=== PATIENT | female | born 1985 | race Caucasian/White ===

== ENCOUNTER 2017-06-12 15:09 | Observation (INO) | payer OTHER ==
[~2017-06-12] VITALS: Ht 162.6 cm; Wt 63.2 kg
[~2017-06-12 15:09] MED LIST: ASPI81TA PO; CLOP75TA2 PO; MULTTAB4 PO
[2017-06-12] MEDS ORDERED: PRED5TA PO (15:25)
[2017-06-12] MEDS ORDERED: METF500T4 PO (15:25)
[2017-06-12] MEDS ORDERED: CABE0.5T PO (15:25)
[2017-06-12] MEDS ORDERED: NS 1,000 ML IV ONE ×2 (16:00→19:00)
[2017-06-12] MEDS ORDERED: MORPHINE 2 MG/ML 1ML SYRINGE IV ONE (16:15)
[2017-06-12 16:35] LABS: BASO % 0.1 % (0.0-1.0); IMMATURE GRANULOCYTE % 0.5 % (0-0); LYMPH # 0.6 10^3/uL (1.5-4.5); LYMPH % 4.3 % (24.0-44.0); MEAN CORPUSCULAR HEMOGLOBIN 30.8 pg (27.0-33.0); MEAN CORPUSCULAR HGB CONC 34.5 g/dl (32.0-36.5); MEAN CORPUSCULAR VOLUME 89.2 fl (80.0-96.0); MONO # 0.3 10^3/uL (0.0-0.8); NEUTROPHILS # 13.9 10^3/uL (1.8-7.7); NEUTROPHILS % 93.1 % (36.0-66.0); PLATELET COUNT, AUTOMATED 296 10^3/uL (150-450); WHITE BLOOD COUNT 14.9 10^3/uL (4.0-10.0)
[2017-06-12 16:38] LABS: CONTROL LINE HCG INT CTR LINE PRESENT
[2017-06-12 16:50] LABS: INR 1.01
[2017-06-12 16:52] LABS: ALBUMIN 4.2 GM/DL (3.2-5.2); ALKALINE PHOSPHATASE 44 U/L (45-117); ALT/SGPT 31 U/L (12-78); AMYLASE 28 U/L (25-115); ANION GAP 7 MEQ/L (8-16); AST/SGOT 14 U/L (15-37); BILIRUBIN,DIRECT 0.2 MG/DL (0.0-0.2); BILIRUBIN,TOTAL 0.8 MG/DL (0.2-1.0); BLOOD UREA NITROGEN 9 MG/DL (7-18); CALCIUM LEVEL 8.5 MG/DL (8.5-10.1); CARBON DIOXIDE LEVEL 24 MEQ/L (21-32); CHLORIDE LEVEL 106 MEQ/L (98-107); CREATININE FOR GFR 0.64 MG/DL (0.55-1.02); GLOMERULAR FILTRATION RATE > 60.0 (>60); GLUCOSE, FASTING 115 MG/DL (70-105); POTASSIUM SERUM 3.7 MEQ/L (3.5-5.1); SODIUM LEVEL 137 MEQ/L (136-145); TOTAL PROTEIN 7.2 GM/DL (6.4-8.2)
[2017-06-12] MEDS ORDERED: ISOVUE-370 76% 100ML VIAL (Q9967) As Ordered ONE (17:34)
--- NOTE | 2017-06-12 18:50 | REPUSA ---
HISTORY: CHEST PAIN. TECHNIQUE: CTA protocol for PE with axial CT imaging of chest, with sagittal and coronal reformatted imaging with intravenous contrast enhancement. FINDINGS: Thoracic aorta is normal with no evidence of aneurysm or dissection. Pulmonary arteries are well opacified with contrast with no evidence of pulmonary embolism. No vascul ar abnormality is seen in the mediastinum or fausto. Mediastinal windows demonstrate no mediastinal pathologically enlarged lymph nodes, mass lesions, or abnormal mediastinal fluid collection seen. Lung windows demonstrate clear lungs with no pulmonary mass lesions, infiltrates, pneumothorax, or pl eural effusions. Bone windows demonstrate no detectable evidence of bone fracture or destructive bony lesion in the ch est. No chest wall abnormality is seen. IMPRESSION: Negative CT of chest as discussed above with no evidence of pulmonary embolism.
--- NOTE | 2017-06-12 19:00 | REPUSA ---
HISTORY: PAIN S/P EGG HARVEST. TECHNIQUE: Axial CT imaging of abdomen and pelvis with intravenous contrast and with sagittal and cor onal reformatted imaging. DLP= 876.1 mGy-cm. FINDINGS: Liver is of normal size with no pathologic mass lesion seen. Biliary tree and gallbladder are normal. Spleen is normal. Pancreas and adrenal glands are normal. Both kidneys function withou t evidence of calculus or solid mass lesion. There is a tiny subcentimeter cyst noted in the left ki dney. Ureters and urinary bladder are normal. Abdominal aorta and IVC and retroperitoneal structure s are normal. There is mild fluid distention with small air-fluid levels in the small bowel, consistent with mild n onspecific small bowel ileus. This may be related to recent surgical procedure. The colon is normal with no mass, obstruction, inflammatory reaction, or diverticulitis seen. There is fluid around the liver and spleen and fluid tracking in along the right and left paracolic gutters to the dependent p tamra. This also should be clinically correlated for recent surgical procedure, with no walled off a bscess seen, but clinical correlation and follow-up is suggested as indicated. Bony structures are normal with no fracture or destructive bony lesions seen. IMPRESSION: 1. Small amount of fluid seen around the liver and spleen and bilaterally in the paracol ic gutters extending into the dependent pelvis. Also, mild nonspecific fluid distention with air-flu id levels in the small bowel. These findings may be related to recent abdominal surgery, but clinica l correlation and follow-up is suggested as indicated. No walled off abscess is seen at this time. 2. The remainder of the CT examination of the abdomen and pelvis is normal.
[2017-06-12] MEDS ORDERED: KETOROLAC 30 MG/ML VIAL (J1885) IV ONE (20:00)
--- NOTE | 2017-06-12 20:37 | HPE ---
DATE OF ADMISSION: 06/12/2017 32-year-old 0 female presents with one day of right sided shoulder pain and diffuse lower abdominal pain that became increasingly severe. She had an egg retrieval following ovarian stimulation in [place] earlier today by Dr. Dominguez. Apparently, the procedure was very successful and there were 42 eggs retrieved. The pain started to become increasingly intense and she presented to the emergency room at [facility]. MEDICAL HISTORY: 1. 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 2. Infertility. SURGICAL HISTORY: 1. Percutaneous closure of PFO in 2012. ALLERGIES: No known drug allergies. SOCIAL HISTORY: The patient is . She lives in [place]. She denies cigarettes, alcohol or drug use. FAMILY HISTORY: Noncontributory. PHYSICAL EXAMINATION: Blood pressure 108/73, pulse 82, temperature 99.0, respiratory rate 16. She appears uncomfortable and is sitting rigidly in the bed trying not to move. She also appears pale. Head and neck exam is normal. Lungs are clear. Heart is regular rate and rhythm. Abdomen is moderately tender diffusely with no rebound or guarding. It is also mildly distended. She has no CVA tenderness. Extremities are nontender. LABORATORIES: White count is 14.3, hemoglobin 13.1 g/dL. Electrolytes normal. CT scan bilateral large adnexal masses with multiple complex cysts. ASSESSMENT: 32-year-old G0 with moderate ovarian hyperstimulation syndrome. PLAN: Admit for pain control and IV hydration. Will monitor electrolytes to assess for worsening hyperstimulation. At present, the patient is stable so there is no surgical intervention necessary. Will also plan to take precautions for thrombosis with Lovenox as well as sequentials.
[2017-06-12] MEDS ORDERED: ASPI81TAEC PO (21:04)
[2017-06-12] MEDS ORDERED: OMEG100011 PO (21:04)
[2017-06-12] MEDS ORDERED: CO Q100C PO (21:04)
[2017-06-12] MEDS ORDERED: PREN1TAB11 PO (21:04)
[2017-06-12] MEDS ORDERED: ONDANSETRON 4MG/2ML VIAL (J2405) IV PRN (21:30)
[2017-06-12] MEDS ORDERED: KETOROLAC 30 MG/ML VIAL (J1885) IV PRN (21:30)
[2017-06-12] MEDS ORDERED: KETOROLAC 30 MG/ML VIAL (J1885) As Ordered ONE (21:55)
[2017-06-12] MEDS ORDERED: PERCOCET 5MG/325MG TAB As Ordered ONE (21:56)
[2017-06-12] MEDS: PERCOCET 5MG/325MG TAB PO PRN ×2 (22:03→23:42)
[2017-06-12 23:00] VITALS: BP 115/69
[2017-06-12] MEDS: KCL 20MEQ IN D5/0.45NS 1000ML 1,000 ML IV SCH (23:42)
[2017-06-12] MEDS ORDERED: PERCOCET 5MG/325MG TAB PO ONE (23:45)
[2017-06-13] MEDS: KCL 20MEQ IN D5/0.45NS 1000ML 1,000 ML IV SCH (04:35)
[2017-06-13] MEDS: PERCOCET 5MG/325MG TAB PO PRN ×2 (04:36→11:14)
[2017-06-13 06:00] VITALS: BP 99/53
[2017-06-13 07:21] LABS: MEAN CORPUSCULAR HEMOGLOBIN 30.4 pg (27.0-33.0); MEAN CORPUSCULAR HGB CONC 34.4 g/dl (32.0-36.5); MEAN CORPUSCULAR VOLUME 88.5 fl (80.0-96.0); RED CELL DISTRIBUTION WIDTH 12.1 % (11.5-14.5); WHITE BLOOD COUNT 10.7 10^3/uL (4.0-10.0)
[2017-06-13] MEDS ORDERED: OXYC1TAB23 PO (07:38)
[2017-06-13 07:39] LABS: ALBUMIN 2.9 GM/DL (3.2-5.2); ALBUMIN/GLOBULIN RATIO 1.04 (1.00-1.93); ALKALINE PHOSPHATASE 34 U/L (45-117); ALT/SGPT 21 U/L (12-78); ANION GAP 9 MEQ/L (8-16); AST/SGOT 10 U/L (15-37); BILIRUBIN,TOTAL 0.6 MG/DL (0.2-1.0); BLOOD UREA NITROGEN 8 MG/DL (7-18); CALCIUM LEVEL 8.1 MG/DL (8.5-10.1); CARBON DIOXIDE LEVEL 22 MEQ/L (21-32); CHLORIDE LEVEL 107 MEQ/L (98-107); CREATININE FOR GFR 0.61 MG/DL (0.55-1.02); GLOMERULAR FILTRATION RATE > 60.0 (>60); GLUCOSE, FASTING 130 MG/DL (70-105); POTASSIUM SERUM 3.3 MEQ/L (3.5-5.1); SODIUM LEVEL 138 MEQ/L (136-145); TOTAL PROTEIN 5.7 GM/DL (6.4-8.2)
[2017-06-13] MEDS ORDERED: LOVE1INJ2 SC (07:40)
[2017-06-13 08:00] VITALS: BP 105/58
[2017-06-13] MEDS ORDERED: ENOXAPARIN 30 MG/0.3 ML SYR (J1650) SC SCH (09:00)
== END 2017-06-13 11:20 | disposition home or self-care (01) ==
LOC: M ED 15:09 → M SDC 19:45 → M ED INP 21:56 → M PED 23:09
PROVIDERS: ADMIT Specialist; ATTEND Specialist
DX: N98.1 Hyperstimulation of ovaries (principal); N97.9 Female infertility, unspecified
CPT/HCPCS: 36415; 71275; 74177; 80048; 80053; 80076; 82150; 83690; 84703; 85025; 85027; 85610; 85730; 86850; 86900; 86901; 93041; 96372; 96374; 96375; 96376; 99285; J1650; J1885; Q9967

== ENCOUNTER → 2017-09-10 | Outpatient (CLI) | payer OTHER | LOC: M WUC 16:03 | DX: S60.211A Contusion of right wrist, initial encounter (principal); X58.XXXA Exposure to other specified factors, initial encounter; Y92.89 Other specified places as the place of occurrence of the external cause | CPT/HCPCS: 73080 ==

== ENCOUNTER → 2017-09-20 | Outpatient (REF) | payer OTHER | LOC: M LAB REF 12:25 | DX: J02.9 Acute pharyngitis, unspecified (principal) ==

== ENCOUNTER → 2017-10-18 | Outpatient (CLI) | payer OTHER ==
[2017-10-18 09:05] LABS: PROGESTERONE 27.9 NG/ML
[2017-10-18 09:06] LABS: ESTRADIOL 234.4 PG/ML
== END ==
LOC: M LAB 07:47
DX: N97.9 Female infertility, unspecified (principal)

== ENCOUNTER 2017-11-20 16:11 | Emergency (ER) | payer OTHER ==
[2017-11-20] MEDS: NS 1,000 ML IV (17:45)
[2017-11-20 17:58] LABS: BASO % 0.3 % (0.0-1.0); EOS # 0.1 10^3/uL (0.0-0.50); EOS % 0.8 % (0.0-3.0); HEMATOCRIT 31.5 % (36.0-47.0); IMMATURE GRANULOCYTE % 0.3 % (0-3.0); LYMPH # 1.8 10^3/uL (1.5-4.5); LYMPH % 17.9 % (24.0-44.0); MEAN CORPUSCULAR HEMOGLOBIN 30.4 pg (27.0-33.0); MEAN CORPUSCULAR HGB CONC 34.9 g/dl (32.0-36.5); MONO # 0.7 10^3/uL (0.0-0.8); MONO % 7.3 % (0.0-5.0); NEUTROPHILS # 7.3 10^3/uL (1.8-7.7); NEUTROPHILS % 73.4 % (36.0-66.0); PLATELET COUNT, AUTOMATED 295 10^3/uL (150-450); RED BLOOD COUNT 3.62 10^6/uL (4.00-5.40); RED CELL DISTRIBUTION WIDTH 11.9 % (11.5-14.5)
[2017-11-20 18:02] LABS: APPEARANCE, URINE CLEAR (CLEAR); BACTERIA, URINE AUTO NEGATIVE (NEGATIVE); BILIRUBIN, URINE AUTO NEGATIVE (NEGATIVE); BLOOD, URINE BLOOD 3+ (NEGATIVE); COLOR, URINE STRAW (YELLOW); GLUCOSE, URINE (UA) AUTO NEGATIVE (NEGATIVE); KETONE, URINE AUTO NEGATIVE (NEGATIVE); LEUKOCYTE ESTERASE, URINE AUTO NEGATIVE (NEGATIVE); NITRITE, URINE AUTO NEGATIVE (NEGATIVE); PROTEIN, URINE AUTO NEGATIVE (NEGATIVE); RBC, URINE AUTO 2 /HPF (0-3); SPECIFIC GRAVITY URINE AUTO 1.003 (1.002-1.035); SQUAMOUS EPITHELIAL CELL UR AU 0 /HPF (0-6); UROBILINOGEN, URINE AUTO 0.2 mg/dL (0.0-2.0); WBC, URINE AUTO 0 /HPF (0-3)
[2017-11-20 18:39] LABS: ANION GAP 8 MEQ/L (8-16); BLOOD UREA NITROGEN 10 MG/DL (7-18); CALCIUM LEVEL 8.4 MG/DL (8.5-10.1); CARBON DIOXIDE LEVEL 23 MEQ/L (21-32); CHLORIDE LEVEL 108 MEQ/L (98-107); CREATININE FOR GFR 0.41 MG/DL (0.55-1.30); GLOMERULAR FILTRATION RATE > 60.0 (>60); GLUCOSE, FASTING 80 MG/DL (70-100); HCG, SERUM QUANTITATIVE 68008 MIU/ML; POTASSIUM SERUM 3.7 MEQ/L (3.5-5.1); SODIUM LEVEL 139 MEQ/L (136-145)
== END 2017-11-20 19:38 | disposition home or self-care (01) ==
LOC: M ED 16:11
DX: O20.8 Other hemorrhage in early pregnancy (principal); O34.82 Maternal care for other abnormalities of pelvic organs, second trimester; O26.892 Other specified pregnancy related conditions, second trimester; Z95.9 Presence of cardiac and vascular implant and graft, unspecified; Z86.73 Personal history of transient ischemic attack (TIA), and cerebral infarction without residual deficits; Z3A.08 8 weeks gestation of pregnancy; Z79.82 Long term (current) use of aspirin; Z79.899 Other long term (current) drug therapy; Z79.84 Long term (current) use of oral hypoglycemic drugs
CPT/HCPCS: 76801

== ENCOUNTER → 2017-12-17 | Outpatient (REF) | payer OTHER ==
[2017-12-17 13:09] LABS: HEMATOCRIT 33.5 % (36.0-47.0); HEMOGLOBIN 11.7 g/dl (12.0-15.5); MEAN CORPUSCULAR HEMOGLOBIN 30.2 pg (27.0-33.0); MEAN CORPUSCULAR HGB CONC 34.9 g/dl (32.0-36.5); MEAN CORPUSCULAR VOLUME 86.6 fl (80.0-96.0); PLATELET COUNT, AUTOMATED 317 10^3/uL (150-450); RED BLOOD COUNT 3.87 10^6/uL (4.00-5.40); RED CELL DISTRIBUTION WIDTH 12.1 % (11.5-14.5); WHITE BLOOD COUNT 9.2 10^3/uL (4.0-10.0)
[2017-12-17 14:02] LABS: HCG, SERUM QUANTITATIVE 28537 MIU/ML
[2017-12-18 11:49] LABS: RUBELLA IgG QUALITATIVE IMMUNE (IMMUNE)
[2017-12-18 11:58] LABS: HBsAg Prenatal NEGATIVE (NEGATIVE)
[2017-12-18 12:16] LABS: HEPATITIS C VIRUS ABY INDEX < 0.0 INDEX (<0.8)
[2017-12-18 12:20] LABS: HIV 1&2 SCREEN CENTAUR NEGATIVE (NEGATIVE)
== END ==
LOC: M LAB REF 12:51
DX: Z34.81 Encounter for supervision of other normal pregnancy, first trimester (principal)

== ENCOUNTER → 2018-04-08 | Outpatient (CLI) | payer OTHER ==
[2018-04-08 11:31] LABS: HEMOGLOBIN 10.6 g/dl (12.0-15.5); MEAN CORPUSCULAR HEMOGLOBIN 30.5 pg (27.0-33.0); MEAN CORPUSCULAR HGB CONC 34.2 g/dl (32.0-36.5); MEAN CORPUSCULAR VOLUME 89.1 fl (80.0-96.0); PLATELET COUNT, AUTOMATED 282 10^3/uL (150-450); RED BLOOD COUNT 3.48 10^6/uL (4.00-5.40); RED CELL DISTRIBUTION WIDTH 12.4 % (11.5-14.5); WHITE BLOOD COUNT 10.3 10^3/uL (4.0-10.0)
[2018-04-08 11:42] LABS: GLUCOSE CHALLENGE TEST 1 HOUR 133 MG/DL (LESS THAN 140)
== END ==
LOC: M LAB 10:00
DX: Z34.82 Encounter for supervision of other normal pregnancy, second trimester (principal); Z36.89 Encounter for other specified antenatal screening
CPT/HCPCS: 82950

== ENCOUNTER → 2018-05-13 | Outpatient (REF) | payer OTHER ==
[2018-05-13 15:32] LABS: CHLAMYDIA DNA AMPLIFICATION NEGATIVE (NEGATIVE); GC DNA AMPLIFICATION NEGATIVE (NEGATIVE)
== END ==
LOC: M LAB REF 13:12
DX: Z34.03 Encounter for supervision of normal first pregnancy, third trimester (principal)

== ENCOUNTER → 2018-06-05 | Outpatient (REF) | payer OTHER | LOC: M LAB REF 13:57 | DX: Z34.03 Encounter for supervision of normal first pregnancy, third trimester (principal); Z36.85 Encounter for antenatal screening for Streptococcus B ==

== ENCOUNTER → 2020-06-30 | Outpatient (REF) | payer OTHER ==
[~2020-06-30] MED LIST changes: -ASPI81TA PO; +ASPI81TAEC PO; +CABE0.5T PO; +CHIL1CHW5 PO; +CO Q100C PO; +COLA100C5 PO; +ENDO100S VA; +IBUP-1114 PO; +LOVE1INJ2 SC; +MAPA500T2 PO; +METF-838 PO; +OMEG100011 PO; +OXYC1TAB23 PO; +PRED5TA PO; +PREN1TAB11 PO; +PRENTAB16 PO
[2020-06-30 14:10] LABS: HEMATOCRIT 36.6 % (36.0-47.0); HEMOGLOBIN 12.2 g/dl (12.0-15.5); MEAN CORPUSCULAR HEMOGLOBIN 29.9 pg (27.0-33.0); MEAN CORPUSCULAR HGB CONC 33.3 g/dl (32.0-36.5); MEAN CORPUSCULAR VOLUME 89.7 fl (80.0-96.0); PLATELET COUNT, AUTOMATED 271 10^3/uL (150-450); RED BLOOD COUNT 4.08 10^6/uL (4.00-5.40); WHITE BLOOD COUNT 7.5 10^3/uL (4.0-10.0)
[2020-06-30 14:53] LABS: HEPATITIS B SURFACE ANTIGEN NEGATIVE (NEGATIVE)
== END ==
LOC: M LAB REF 12:30
PROVIDERS: ATTEND Obstetrics & Gynecology
DX: Z34.81 Encounter for supervision of other normal pregnancy, first trimester (principal)

== ENCOUNTER → 2020-08-04 | Outpatient (REF) | payer OTHER ==
[2020-08-04 14:59] LABS: HEPATITIS C VIRUS ABY INDEX < 0.0 INDEX (<0.8); HIV 1&2 SCREEN CENTAUR NEGATIVE (NEGATIVE)
== END ==
LOC: M LAB REF 11:05
PROVIDERS: ATTEND Obstetrics & Gynecology
DX: Z34.82 Encounter for supervision of other normal pregnancy, second trimester (principal); Z3A.00 Weeks of gestation of pregnancy not specified

== ENCOUNTER → 2020-08-24 | Outpatient (CLI) | payer OTHER ==
--- NOTE | 2020-08-24 10:50 | REP ---
INDICATION: ANATOMY COMPARISON: None. TECHNIQUE: Transabdominal obstetrical ultrasound with color Doppler evaluation. FINDINGS: Examination demonstrates a single live intrauterine in breech presentation. motion is identified by technologist. Placenta is noted posterior and grade 1 without evidence for placenta previa or abruption. Amniotic fluid volume is normal. Cervix measures 3.4 cm in length and appears closed.. Gestational age by LMP nineteen weeks 5 days with CL 01/13/2021. Gestational age by current measurements 19 weeks 3 days with CL 01/15/2021. FHR equals 152 beats per minute. BPD: 4.3 cm 18 weeks 6 days HC: 16.1 cm 19 weeks 0 days AC: 14.6 cm 19 weeks 6 days FL: 3.1 cm 19 weeks 3 days HL: 3.0 cm 19 weeks 5 days HC/AC: 1.11 Estimated weight 301 grams (39thpercentile). Anatomical assessment demonstrates normal structures including cranium, choroid plexus, cavum, cerebellum/posterior fossa, facial features, lungs, four-chamber heart/ventricular outflow tracts, diaphragm, stomach, cord insertion/three-vessel cord, kidneys/bladder, spine, and extremities. IMPRESSION: Single live intrauterine in breech presentation demonstrating appropriate estimated weight and growth. Anatomical assessment is complete and normal. <Electronically signed by Rojelio Dinh > 08/24/20 0825
== END ==
LOC: M WHC 08:29
PROVIDERS: ATTEND Advanced Practice Midwife
DX: Z36.9 Encounter for antenatal screening, unspecified (principal); Z3A.19 19 weeks gestation of pregnancy

== ENCOUNTER → 2020-10-21 | Outpatient (CLI) | payer OTHER ==
[2020-10-21 15:44] LABS: HEMATOCRIT 33.2 % (36.0-47.0); MEAN CORPUSCULAR HEMOGLOBIN 30.3 pg (27.0-33.0); MEAN CORPUSCULAR HGB CONC 33.1 g/dl (32.0-36.5); MEAN CORPUSCULAR VOLUME 91.5 fl (80.0-96.0); PLATELET COUNT, AUTOMATED 246 10^3/uL (150-450); RED BLOOD COUNT 3.63 10^6/uL (4.00-5.40); WHITE BLOOD COUNT 10.5 10^3/uL (4.0-10.0)
== END ==
LOC: M LAB 13:44
PROVIDERS: ATTEND Obstetrics & Gynecology
DX: Z34.82 Encounter for supervision of other normal pregnancy, second trimester (principal); Z3A.00 Weeks of gestation of pregnancy not specified

== ENCOUNTER → 2020-11-01 | Outpatient (CLI) | payer OTHER ==
[~2020-11-01] MED LIST changes: +ASPI-569 PO; -ASPI81TAEC PO
== END ==
LOC: M LAB 07:52
PROVIDERS: ATTEND Obstetrics & Gynecology
DX: O99.810 Abnormal glucose complicating pregnancy (principal); Z3A.00 Weeks of gestation of pregnancy not specified

== ENCOUNTER → 2020-12-09 | Outpatient (REF) | payer OTHER | LOC: M LAB REF 14:52 | PROVIDERS: ATTEND Advanced Practice Midwife | DX: Z36.89 Encounter for other specified antenatal screening (principal) ==

== ENCOUNTER → 2020-12-16 | Outpatient (CLI) | payer OTHER ==
--- NOTE | 2020-12-16 14:56 | REP ---
INDICATION: POSITION,EFW,HALEY COMPARISON: 08/24/2020 TECHNIQUE: Transabdominal obstetrical ultrasound with color Doppler evaluation. FINDINGS: Examination demonstrates a single live intrauterine in cephalic presentation. motion is identified by technologist. Placenta is noted posterior and grade 2 without evidence for placenta previa or abruption. Amniotic fluid volume is normal. Cervix appears closed.. Gestational age by LMP and 1st U/S 36 weeks 0 days with CL 01/13/2021. Gestational age by current measurements 35 weeks 5 days with CL 01/15/2021. FHR equals 169 beats per minute. Estimated weight 2815 grams (50thpercentile). HALEY: 9.2 cm (7.7-24.9) Umbilical artery SD ratio: 2.28 (1.64-3.51) Anatomical assessment demonstrates normal structures including cranium, cerebral ventricles, choroid plexus, posterior fossa/cerebellum, four-chamber heart, diaphragm, stomach, abdominal wall and kidneys/bladder. Three-vessel cord noted.. IMPRESSION: Single live intrauterine in cephalic presentation demonstrating appropriate estimated weight and growth. Amniotic fluid volume normal. <Electronically signed by Rojelio Dinh > 12/16/20 [id number]
== END ==
LOC: M WHC 11:49
PROVIDERS: ATTEND Advanced Practice Midwife
DX: O32.0XX1 Maternal care for unstable lie, fetus 1 (principal); Z3A.36 36 weeks gestation of pregnancy

== ENCOUNTER 2021-06-12 19:12 | Emergency (ER) | payer OTHER ==
[~2021-06-12] VITALS: Ht 162.6 cm; Wt 59.0 kg
--- OUTSIDE RECORDS SUMMARY | 2021-06-12 19:18 | CCD ---
Author Author [facility] Organization [facility] Address Unknown Phone Unavailable Care Team Providers Care Tacking Stitch Remover Name Role Phone NO, PCP Unavailable Unavailable Mona ACOSTA MD Unavailable Unavailable Mona ACOSTA MD Unavailable Unavailable Mona ACOSTA MD Unavailable Unavailable Mona ACOSTA MD Unavailable Unavailable Mona ACOSTA MD Unavailable Unavailable Mona ACOSTA MD Unavailable Unavailable Mona ACOSTA MD Unavailable Unavailable Mona ACOSTA MD Unavailable Unavailable Mona ACOSTA MD Unavailable Unavailable Mona ACOSTA MD Unavailable Unavailable Mona ACOSTA MD Unavailable Unavailable Mona ACOSTA MD Unavailable Unavailable KARLAMona Mann MD Unavailable Unavailable KARLAMona Mann MD Unavailable Unavailable Mona ACOSTA MD Unavailable Unavailable KARLAMona Mann MD Unavailable Unavailable Mona ACOSTA MD Unavailable Unavailable KARLAMona Mann MD Unavailable Unavailable Mona ACOSTA MD Unavailable Unavailable KARLAMona Mann MD Unavailable Unavailable KARLAMona Mann MD Unavailable Unavailable KARLA, Mona DEAN MD Unavailable Unavailable KARLA, Mona DEAN MD Unavailable Unavailable KARLA, Mona DEAN MD Unavailable Unavailable KARLA, Mona DEAN MD Unavailable Unavailable KARLA, Mona DEAN MD Unavailable Unavailable KARLA, Mona DEAN MD Unavailable Unavailable KARLA, Mona DEAN MD Unavailable Unavailable KARLA, Mona DEAN MD Unavailable Unavailable KARLA, Mona DEAN MD Unavailable Unavailable Garcia, M Christopher PA-C Unavailable Unavailable Garcia, M Christopher PA-C Unavailable Unavailable Garcia, M Christopher PA-C Unavailable Unavailable Garcia, M Christopher PA-C Unavailable Unavailable Garcia, M Christopher PA-C Unavailable Unavailable Garcia, M Christopher PA-C Unavailable Unavailable Garcia, M Christopher PA-C Unavailable Unavailable Garcia, M Christopher PA-C Unavailable Unavailable Garcia, M Christopher PA-C Unavailable Unavailable Garcia, M Christopher PA-C Unavailable Unavailable Garcia, M Christopher PA-C Unavailable Unavailable Garcia, M Christopher PA-C Unavailable Unavailable Garcia, M Christopher PA-C Unavailable Unavailable Garcia, M Christopher PA-C Unavailable Unavailable Garcia, M Christopher PA-C Unavailable Unavailable Garcia, M Christopher PA-C Unavailable Unavailable Garcia, M Christopher PA-C Unavailable Unavailable Garcia, M Christopher PA-C Unavailable Unavailable Garcia, M Christopher PA-C Unavailable Unavailable Garcia, M Christopher PA-C Unavailable Unavailable Garcia, M Christopher PA-C Unavailable Unavailable Garcia, M Christopher PA-C Unavailable Unavailable Garcia, M Christopher PA-C Unavailable Unavailable Garcia, M Christopher PA-C Unavailable Unavailable Garcia, M Christopher PA-C Unavailable Unavailable Garcia, M Christopher PA-C Unavailable Unavailable Re-disclosure Warning The records that you are about to access may contain information from federally-assisted alcohol or drug abuse programs. If such information is present, then the following federally mandated warning applies: This information has been disclosed to you from records protected by federal confidentiality rules (42 CFR part 2). The federal rules prohibit you from making any further disclosure of this information unless further disclosure is expressly permitted by the written consent of the person to whom it pertains or as otherwise permitted by 42 CFR part 2. A general authorization for the release of medical or other information is NOT sufficient for this purpose. The Federal rules restrict any use of the information to criminally investigate or prosecute any alcohol or drug abuse patient.The records that you are about to access may contain highly sensitive health information, the redisclosure of which is protected by Article 27-F of the [facility] Public Health law. If you continue you may have access to information: Regarding HIV / AIDS; Provided by facilities licensed or operated by the [facility] Office of Mental Health; or Provided by the [facility] Office for People With Developmental Disabilities. If such information is present, then the following [facility] mandated warning applies: This information has been disclosed to you from confidential records which are protected by state law. State law prohibits you from making any further disclosure of this information without the specific written consent of the person to whom it pertains, or as otherwise permitted by law. Any unauthorized further disclosure in violation of state law may result in a fine or fci sentence or both. A general authorization for the release of medical or other information is NOT sufficient authorization for further disc losure. Allergies and Adverse Reactions Type Description Substance Reaction Status Data Source(s ) No Known Allergies No Known Allergies [facility] Family History Family Member Name Family Member Gender Family Member Status Date o f Status Description Data Source(s) Unknown Male Problem [facility] ([facility] Unknown Male Problem [facility] ([facility] Unknown Unknown Problem [facility] Encounters Encounter Providers Location Date Indications Data Source(s ) Outpatient Attender: Kayode Garcia PA-C 06/03/2021 12:51:31 PM EDT - 06/03/2021 02:51:55 PM EDT [facility] In[facility] Attender: DIANNE ACOSTA MDConsultant: PCP NO 01/05/2021 06:05:00 PM EDT - 01/07/2021 11:15:00 AM EDT [facility] Patient discharged. Medications Medication Brand Name Start Date Product Form Dose Route Admi nistrative Instructions Pharmacy Instructions Status Indications Reaction Description Data Source(s) 50 mg 03/25/2021 12:00:00 AM EDT tablet 30 TAKE 1/2 TABLET BY MOUTH ONCE DAILY FOR 14 DAYS THEN INCREASE TO 1 TABLET ONCE DAILY IN THE MORNING TAKE 1/2 TABLET BY MOUTH ONCE DAILY FOR 14 DAYS THEN INCREASE TO 1 TABLET ONCE DAILY IN THE MORNING SOLD: 03/28/2021 Sen alvarado Insurance Providers Payer name Policy type / Coverage type Policy ID Covered republican ID Covered republican's relationship to mcmahon Policy Mcmahon Plan Information [employer]ET[employer] [place] [id number] SP [id number] AETNA U [id number] Self [id number] UN [employer] CHOICE PLUS [id number] SP [id number] [facility] Commercial Insurance Co. [id number] Self [id number] [employer] Do[employer]. [employer] Co. [id number] Self [id number] R [facility] [id number] AETNA [id number] SP [id number] UMR O [id number] S [id number] [employer] HE[employer]CARE [place] O [id number] S [id number] AETNA [id number] SP [id number] UMR -O/P [id number] 18 [id number] [employer] [place] CHOICE PLUS [id number] SP [id number] UMR -O [id number] 18 [id number] [employer]etna Ppo/Pos/Nap/MC Commercial [id number] Self [id number] [employer]na Ppo/Pos/Nap/MC Commercial [id number] Self [id number] [employer] Life [employer] Commercial [id number] Self [employer] HEALTHCARE [place] O [id number] S [id number] UMR -O [id number] 01 [id number] [employer]etna [facility] Care Commercial [id number] Self Aetna Ppo/Pos/Nap/MC Commercial [id number] Self BCBS OF [place] [id number] SP [id number] EXC PLANS 1 [id number] SELF PAY 2 UNAVAILABLE 1 UNAVAILA BLE Problems, Conditions, and Diagnoses Code Display Name Description Problem Type Effective Dates Data Source(s) Z8673 Personal history of transien t ischemic attack (TIA), and cerebral infarction without residual deficits Personal history of transient ischemic attack (TIA), and cerebral infarction without residual deficits Diagnosis 01/05/2021 06:05:00 PM EDT [facility] [id number] 38 weeks gestation of 38 weeks gestation of Diagnosis 01/05/2021 06:05:00 PM EDT [facility] Z370 Single live Single live Diagnosis 01/05/2021 06:05:00 PM EDT [facility] O80 Encounter for full-term uncomplicated de livery Encounter for full-term uncomplicated delivery Diagnosis 01/05/2021 06:05:00 PM EDT [facility] [id number] Encounter for supervision of other anshu l , third trimester Encounter for supervision of other normal , third trimester Diagnosis 01/05/2021 06:05:00 PM EDT [facility] Surgeries/Procedures Procedure Description Date Indications Data Source(s) Monitoring of Products of Conception, Ca rdiac Electrical Activity, External Approach Monitoring of Products of Conception, Ca rdiac Electrical Activity, External Approach 01/05/2021 12:00:00 AM EDT [facility] Delivery of Products of Conception, External Approach Delivery of Products of Conception, External Approach 01/05/2021 12:00:00 AM EDT [facility] Results ID Date Data Source [id number] 06/03/2021 01:00:00 PM EDT [facility] Name Value Range Interpretation Code Description Data Janet rce(s) Supporting Document(s) SARS-CoV-2 RNA Resp Ql SULEMA+probe NOT DETECTED [facility] This lab was ordered by SHAYLEE martin and reported by SHAYLEE Varghese. ID Date Data Source [id number] 01/06/2021 07:50:00 AM EDT [facility] Name Value Range Interpretation Code Description Data Janet rce(s) Supporting Document(s) CBC W/MANUAL DIFF [facility] COMPLETE BLOOD COUNT Leukocytes [#/volume] in Blood by Automated count 16.0 10^3/uL 4.2 - 11.0 H [facility] Erythrocytes [#/volume] in Blood by Automated count 3.69 10^6/uL 4. 20 - 5.40 L [facility] Hemoglobin [Mass/volume] in Blood 11.7 g/dL 12.0 - 16.0 L [facility] Hematocrit [Volume Fraction] of Blood by Automated count 33.4 % 3 7.0 - 47.0 L [facility] Erythrocyte mean corpuscular volume [Entitic volume] by Auto mated count 90.5 fL 81.0 - 101 [facility] Erythrocyte mean corpuscular hemoglobin [Entitic mass] by Automated count 31.7 pg 27.0 - 34.0 [facility] Erythrocyte mean corpuscular hemoglobin concentration [Mass/volume] by Automated count 35.0 g/dL 31.0 - 36.0 [facility] Erythrocyte distribution width [Ratio] by Automated count 12.8 % 11.5 - 14.5 [facility] Platelets [#/volume] in Blood by Automated count 225 10^3/uL 150 - 45 0 [facility] Platelet mean volume [Entitic volume] in Blood by Automated count 9.4 fL 7.4 - 10.4 [facility] Neutrophils/100 leukocytes in Blood by Automated count 82.8 % 37. 0 - 80.0 H [facility] Lymphocytes/100 leukocytes in Blood by Manual count 8.4 % 25.0 - 40.0 L [facility] Monocytes/100 leukocytes in Blood by Automated count 7.2 % 3.0 - 8.0 [facility] Eosinophils/100 leukocytes in Blood by Automated count 0.4 % 0.0 - 7.0 [facility] Basophils/100 leukocytes in Blood by Automated count 0.2 % 0.0 - 2.5 [facility] %IG 1.0 % 0.0 - 0.0 [facility] %NRBC 0.0 % 0.0 - 0.0 [facility] al Neutrophils [#/volume] in Blood by Automated count 13.29 10^3/uL 2. 00 - 6.90 H [facility] Lymphocytes [#/volume] in Blood by Automated count 1.35 10^3/uL 0.60 - 3.40 [facility] Monocytes [#/volume] in Blood by Automated count 1.15 10^3/uL 0.00 - 0.90 H [facility] Eosinophils [#/volume] in Blood by Automated count 0.06 10^3/uL 0.00 - 0.70 [facility] Basophils [#/volume] in Blood by Automated count 0.03 10^3/uL 0.00 - 0.20 [facility] #IG 0.16 10^3/uL 0.00 - 0.10 H [facility]ital #NRBC 0.00 10^3/uL 0.00 - 0.00 [facility] ospital MANUAL DIFF SEE BELOW [facility] Segmented neutrophils/100 leukocytes in Blood by Manual count 93 % 37 - 80 H [facility] %LYMPH 4 % 25 - 40 L [facility] al %MONO 3 % 3 - 8 [facility] al RBC MORPH NOT INDICATED [facility] Ho spital ID Date Data Source [id number] 01/05/2021 07:22:00 PM EDT [facility] Name Value Range Interpretation Code Description Data Janet rce(s) Supporting Document(s) BASIC METABOLIC PANEL [facility] BASIC METABOLIC PANEL Sodium [Moles/volume] in Serum or Plasma 136 mEq/L 134 - 153 [facility] Potassium [Moles/volume] in Serum or Plasma 3.5 mEq/L 3.6 - 5.0 L [facility] Chloride [Moles/volume] in Serum or Plasma 103 mEq/L 98 - 107 [facility] Carbon dioxide, total [Moles/volume] in Serum or Plasma 18 MEQ/L 22 - 30 L [facility] Glucose [Mass/volume] in Serum or Plasma 84 MG/DL 70 - 99 [facility] BUN 6 MG/DL 7 - 21 L [facility] al Creatinine [Mass/volume] in Serum or Plasma <0.4 MG/DL 0.7 - 1.5 L [facility] BUN/CREAT 20 8 - 27 [facility] Calcium [Mass/volume] in Serum or Plasma 8.8 MG/DL 8.4 - 10.2 [facility] Anion gap 3 in Serum or Plasma 15.0 mmol/L 8.0 - 16.0 [facility] AGE 35 yrs [facility] AFR AMER GFR >60 mL/min [facility] Ho spital NON-AA GFR >60 mL/min [facility] ital Male GFR Inter prentation 20-49 yrs >60 mL/min Normal 50-59 yrs >56 mL/min Normal 60-69 yrs >49 mL/min Normal 70-79yrs >42 mL/min Normal 80 and above >35 mL/min Normal Female GFR Interpretation 20-39 yrs >60 mL/min Normal 40-49 yrs >58 mL/min Normal 50-59 yrs >51 mL/min Normal 60-69 yrs >45 mL/min Normal 70-79 yrs >39 mL/min Normal 80 and above >32 mL/min Normal ID Date Data Source [id number] 01/05/2021 07:19:00 PM EDT [facility] Name Value Range Interpretation Code Description Data Janet rce(s) Supporting Document(s) BNP 20 PG/ML 0 - [address] [facility] ID Date Data Source [id number] 01/05/2021 07:16:00 PM EDT [facility] Name Value Range Interpretation Code Description Data Janet rce(s) Supporting Document(s) Prothrombin time (PT) 13.1 SECONDS 11.0 - 15.5 [facility] INR in Platelet poor plasma by Coagulation assay 0.94 0.93 - 1. 23 [facility] aPTT in Blood by Coagulation assay 26.5 SECONDS 24.8 - 36.7 [facility] \BLDo\INR INTERPRETATION\BLDx\ Therapeutic range for Coumadin and related oral anticoagulants. - International Normalized Ratio (INR): 2.0 - 3.0 for Venous Thrombosis, Pulmonary Embolus, Tissue heart valves, Acute ND Atrial Fibrillation, Valvular heart disease and recurrent Systemic Embolism. - International Normalized Ratio (INR): 2.5 - 3.5 for Mechanical Prosthetic valve. ID Date Data Source [id number] 01/05/2021 07:11:00 PM EDT [facility] Name Value Range Interpretation Code Description Data Janet rce(s) Supporting Document(s) CBC W/AUTOMATED DIFF [facility] COMPLETE BLOOD COUNT Leukocytes [#/volume] in Blood by Automated count 15.6 10^3/uL 4.2 - 11.0 H [facility] Erythrocytes [#/volume] in Blood by Automated count 4.16 10^6/uL 4. 20 - 5.40 L [facility] Hemoglobin [Mass/volume] in Blood 13.1 g/dL 12.0 - 16.0 [facility] Hematocrit [Volume Fraction] of Blood by Automated count 37.0 % 3 7.0 - 47.0 [facility] Erythrocyte mean corpuscular volume [Entitic volume] by Auto mated count 88.9 fL 81.0 - 101 [facility] Erythrocyte mean corpuscular hemoglobin [Entitic mass] by Automated count 31.5 pg 27.0 - 34.0 [facility] Erythrocyte mean corpuscular hemoglobin concentration [Mass/volume] by Automated count 35.4 g/dL 31.0 - 36.0 [facility] Erythrocyte distribution width [Ratio] by Automated count 12.7 % 11.5 - 14.5 [facility] Platelets [#/volume] in Blood by Automated count 228 10^3/uL 150 - 45 0 [facility] Platelet mean volume [Entitic volume] in Blood by Automated count 9.2 fL 7.4 - 10.4 [facility] Neutrophils/100 leukocytes in Blood by Automated count 80.1 % 37. 0 - 80.0 H [facility] Lymphocytes/100 leukocytes in Blood by Manual count 10.8 % 25.0 - 40.0 L [facility] Monocytes/100 leukocytes in Blood by Automated count 7.2 % 3.0 - 8.0 [facility] Eosinophils/100 leukocytes in Blood by Automated count 0.4 % 0.0 - 7.0 [facility] 0.3 %IG 1.2 % 0.0 - 0.0 [facility] %NRBC 0.0 % 0.0 - 0.0 [facility] al Neutrophils [#/volume] in Blood by Automated count 12.49 10^3/uL 2. 00 - 6.90 H [facility] Lymphocytes [#/volume] in Blood by Automated count 1.69 10^3/uL 0.60 - 3.40 [facility] Monocytes [#/volume] in Blood by Automated count 1.13 10^3/uL 0.00 - 0.90 H [facility] Eosinophils [#/volume] in Blood by Automated count 0.06 10^3/uL 0.00 - 0.70 [facility] Basophils [#/volume] in Blood by Automated count 0.04 10^3/uL 0.00 - 0.20 [facility] #IG 0.18 10^3/uL 0.00 - 0.10 H [facility] H ospital #NRBC 0.00 10^3/uL 0.00 - 0.00 [facility] ospital MANUAL DIFF SEE BELOW [facility] ital Segmented neutrophils/100 leukocytes in Blood by Manual count 79 % 37 - 80 [facility] BAND 0 % 0 - 5 [facility] al %LYMPH 10 % 25 - 40 L [facility] al %MONO 11 % 3 - 8 [facility] %EOS 0 % 0 - 7 [facility] 0 Metamyelocytes/100 leukocytes in Blood by Manual count 0 % [facility] Myelocytes/100 leukocytes in Blood by Manual count 0 % [facility] Promyelocytes/100 leukocytes in Blood by Manual count 0 % [facility] Blasts/100 leukocytes in Blood by Manual count 0 % [facility] AKIRA LYM 0 % [facility] Nucleated erythrocytes/100 erythrocytes in Blood by Manual count 0 % [facility] RBC MORPH NOT INDICATED [facility] spital ID Date Data Source [id number] 01/05/2021 06:58:00 PM EDT [facility] Name Value Range Interpretation Code Description Data Janet rce(s) Supporting Document(s) AMNISURE MEMBRANE TEST [facility] _AMNISURE MEMBRANE TEST_ NISURE MEMBRANES RUPTURED [facility] NISURE REENTER MEMBRANES RUPTURED [facility] TRIP LOT # [id number] [facility] DATE 08-14-23 [facility] spital ROCEDURAL CONTROL [facility] NORMAL RANGE: NO RUPTURED MEMBRANES THE AMNISURE ROM TEST RESULTS ARE QUALITATIVE. NO QUANTITATIVEINTERPRETATION SHOULD BE MADE BASED ON THE TEST RESULTS.RESULTS SHOULD BE USED IN CONJUCTION WITH OTHER CLINICAL INFORMATION ID Date Data Source [id number] 01/05/2021 07:12:00 PM EDT [facility] Name Value Range Interpretation Code Description Data Janet rce(s) Supporting Document(s) URINALYSIS [facility] horacio URINALYSIS SOURCE Clean Catch [facility] ital COLOR yellow NORMAL: Yellow [facility] CLARITY clear NORMAL: Clear [facility] sp[facility] Specific gravity of Urine by Test strip 1.010 1.001 - 1.030 [facility] pH 7 5 - 9 [facility] Glucose [Mass/volume] in Urine by Test strip [facility] [Presence] in Urine by Test strip NEG NORMAL: Negative [facility] Ketones [Presence] in Urine by Test strip NEG NORMAL: Negative [facility] Protein [Mass/volume] in Urine by Test strip NEG NORMAL: Negat [facility] Nitrite [Presence] in Urine by Test strip NEG NORMAL: Negative [facility] BLOOD 150 NORMAL: Negative [facility] Leukocyte esterase [Presence] in Urine by Test strip NEG ANSHU L: Negative [facility] Urobilinogen [Mass/volume] in Urine by Test strip NOR less vikas n 1.0 mg/dL [facility] MICROSCOPIC See Below [facility] ital Erythrocytes [#/volume] in Urine by Test strip 1 - 3 NORMAL: NON E SEEN [facility] EPITHELIAL MODERATE NORMAL: NONE SEEN [facility] Bacteria [Presence] in Urine sediment by Light microscopy Tr chris NORMAL: NONE SEEN [facility] Procedure Social History No Information Vital Signs ID Date Data Source [id number] 01/11/2021 10:41:28 AM EDT [facility] Name Value Range Interpretation Code Description Data Source(s) WEIGHT RECORDED 157.00 pounds 157.00 pounds [facility] Height 64 Inches 064 Inches [facility]
[2021-06-12] MEDS ORDERED: ASPI81CH33 PO (19:35)
[2021-06-12] MEDS ORDERED: ALBUTEROL 90 MCG/ACT 8GM HFA INHALER INH ONE (19:55)
--- OUTSIDE RECORDS SUMMARY | 2021-06-12 20:36 | CCD ---
Author Author [facility] Organization [facility] Address Unknown Phone Unavailable Care Team Providers Care Lead Technician Name Role Phone NO, PCP Unavailable Unavailable [...] is protected by Article 27-F of the [facility] Public Health law. If you continue you may have access to information: Regarding HIV / AIDS; Provided by facilities licensed or operated by the [facility] Office of Mental Health; or Provided by the [facility] Office for People With Developmental Disabilities. If such information is present, then the following [facility] mandated warning applies: This information [...] law may result in a fine or detention sentence or both. A general authorization for the release of medical or other information is NOT sufficient authorization for further disc losure. Allergies and Adverse Reactions Type Description Substance Reaction Status Data Source(s ) No Known Allergies No Known Allergies [facility] Family History Family Member Name Family Member Gender Family Member Status Date o f Status Description Data Source(s) Unknown Male Problem [facility] ([facility] Unknown Male Problem [facility] ([facility] Unknown Unknown Problem [facility] Encounters Encounter Providers Location Date Indications Data Source(s ) Outpatient Attender: Kayode Garcia PA-C 06/03/2021 12:51:31 PM EDT - 06/03/2021 02:51:55 PM EDT [facility] Inpatient Attender: DIANNE ACOSTA MDConsultant: PCP NO 01/05/2021 06:05:00 PM EDT - 01/07/2021 11:15:00 AM EDT [facility] l Patient discharged. Medications Medication Brand [...] type / Coverage type Policy ID Covered constitution party ID Covered constitution party's relationship to mcmahon Policy Mcmahon Plan Information [employer]ET[employer] [place] [id number] SP [id number] AETNA U [id number] Self [id number] UN [employer] CHOICE PLUS [id number] SP [id number] [facility] Commercial Insurance Co. [id number] Self [id number] [employer]. [id number] Self [id number] R [facility] [id number] [id number] AETNA [id number] SP [id number] UMR O [id number] S [id number] [employer] [place] [place] O [id number] S [id number] AET[employer] [id number] SP [id number] UMR -O/P [id number] 18 [id number] [employer] [place] CHOICE PLUS [id number] SP [id number] UMR -O [id number] [employer]na Ppo/Pos/Nap/MC Commercial [id number] Self [id number] [employer]na Ppo/Pos/Nap/MC Commercial [id number] Self [id number] [employer] Commercial [id number] Self [employer] [place] O [id number] S [id number] UMR -O [id number] 01 [id number] Aetna [facility] Care Commercial [id number] Self Aetna Ppo/Pos/Nap/MC Commercial [id number] Self BCBS OF [place]ATN [id number] SP [id number] EXC PLANS 1 [id number] SELF PAY 2 UNAVAILABLE 1 UNAVAILA BLE Problems, Conditions, and Diagnoses Code Display Name Description Problem Type Effective Dates Data Source(s) Z8673 Personal history of transien t ischemic attack (TIA), and cerebral infarction without residual deficits Personal history of transient ischemic attack (TIA), and cerebral infarction without residual deficits Diagnosis 01/05/2021 06:05:00 PM EDT [facility] [id number] 38 weeks gestation of 38 weeks gestation of Diagnosis 01/05/2021 06:05:00 PM EDT [facility] Z370 Single live Single live Diagnosis 01/05/2021 06:05:00 PM EDT [facility] O80 Encounter for full-term uncomplicated de livery Encounter for full-term uncomplicated delivery Diagnosis 01/05/2021 06:05:00 PM EDT [facility] [id number] Encounter for supervision of other anshu l , third trimester Encounter for supervision of other normal , third trimester Diagnosis 01/05/2021 06:05:00 PM EDT [facility] Surgeries/Procedures Procedure Description Date Indications Data Source(s) Monitoring of Products of Conception, Ca rdiac Electrical Activity, External Approach Monitoring of Products of Conception, Ca rdiac Electrical Activity, External Approach 01/05/2021 12:00:00 AM EDT [facility] Delivery of Products of Conception, External Approach Delivery of Products of Conception, External Approach 01/05/2021 12:00:[address] [facility] Results ID Date Data Source [id number] 06/03/2021 01:00:00 PM EDT [facility] Name Value Range Interpretation Code Description Data Janet rce(s) Supporting Document(s) SARS-CoV-2 RNA Resp Ql SULEMA+probe NOT DETECTED [facility] This lab was ordered by SHAYLEE martin and reported by SHAYLEE Varghese. ID Date Data Source [id number] 01/06/2021 07:50:00 AM EDT [facility] Name Value Range Interpretation Code Description Data Janet rce(s) Supporting Document(s) CBC W/MANUAL DIFF [facility] COMPLETE BLOOD COUNT Leukocytes [#/volume] in Blood by Automated count 16.0 10^3/uL 4.2 - 11.0 H [facility] Erythrocytes [#/volume] in Blood by Automated count 3.69 10^6/uL 4. 20 - 5.40 L [facility] Hemoglobin [Mass/volume] in Blood 11.7 g/dL 12.0 - 16.0 L [facility] Hematocrit [Volume Fraction] of Blood by Automated count 33.4 % 3 7.0 - 47.0 L [facility] Erythrocyte mean corpuscular volume [Entitic volume] by Auto mated count 90.5 fL 81.0 - 101 [facility] Erythrocyte mean corpuscular hemoglobin [Entitic mass] by Automated count 31.7 pg 27.0 - 34.0 [facility] Erythrocyte mean corpuscular hemoglobin concentration [Mass/volume] by Automated count 35.0 g/dL 31.0 - 36.0 [facility] Erythrocyte distribution width [Ratio] by Automated count 12.8 % 11.5 - 14.5 [facility] Platelets [#/volume] in Blood by Automated count 225 10^3/uL 150 - 45 0 [facility] Platelet mean volume [Entitic volume] in Blood by Automated count 9.4 fL 7.4 - 10.4 [facility] Neutrophils/100 leukocytes in Blood by Automated count 82.8 % 37. 0 - 80.0 H [facility] Lymphocytes/100 leukocytes in Blood by Manual count 8.4 % 25.0 - 40.0 L [facility] Monocytes/100 leukocytes in Blood by Automated count 7.2 % 3.0 - 8.0 [facility] Eosinophils/100 leukocytes in Blood by Automated count 0.4 % 0.0 - 7.0 [facility] Basophils/100 leukocytes in Blood by Automated count 0.2 % 0.0 - 2.5 [facility] %IG 1.0 % 0.0 - 0.[address] [facility] %NRBC 0.0 % 0.0 - 0.0 [facility] al Neutrophils [#/volume] in Blood by Automated count 13.29 10^3/uL 2. 00 - 6.90 H [facility] Lymphocytes [#/volume] in Blood by Automated count 1.35 10^3/uL 0.60 - 3.40 [facility] Monocytes [#/volume] in Blood by Automated count 1.15 10^3/uL 0.00 - 0.90 H [facility] Eosinophils [#/volume] in Blood by Automated count 0.06 10^3/uL 0.00 - 0.70 [facility] Basophils [#/volume] in Blood by Automated count 0.03 10^3/uL 0.00 - 0.20 [facility] #IG 0.16 10^3/uL 0.00 - 0.10 H [facility] H ospital #NRBC 0.00 10^3/uL 0.00 - 0.00 [facility] ospital MANUAL DIFF SEE BELOW [facility] Segmented neutrophils/100 leukocytes in Blood by Manual count 93 % 37 - 80 H [facility] %LYMPH 4 % 25 - 40 L [facility] al %MONO 3 % 3 - 8 [facility] al RBC MORPH NOT INDICATED [facility] Ho spital ID Date Data Source [id number] 01/05/2021 07:22:00 PM EDT [facility] Name Value Range Interpretation Code Description Data Janet rce(s) Supporting Document(s) BASIC METABOLIC PANEL [facility] BASIC METABOLIC PANEL Sodium [Moles/volume] in Serum or Plasma 136 mEq/L 134 - 153 [facility] Potassium [Moles/volume] in Serum or Plasma 3.5 mEq/L 3.6 - 5.0 L [facility] Chloride [Moles/volume] in Serum or Plasma 103 mEq/L 98 - 107 [facility] Carbon dioxide, total [Moles/volume] in Serum or Plasma 18 MEQ/L 22 - 30 L [facility] Glucose [Mass/volume] in Serum or Plasma 84 MG/DL 70 - 99 [facility] BUN 6 MG/DL 7 - 21 L [facility] al Creatinine [Mass/volume] in Serum or Plasma <0.4 MG/DL 0.7 - 1.5 L [facility] BUN/CREAT 20 8 - 27 [facility] Calcium [Mass/volume] in Serum or Plasma 8.8 MG/DL 8.4 - 10.2 [facility] Anion gap 3 in Serum or Plasma 15.0 mmol/L 8.0 - 16.0 [facility] AGE 35 yrs [facility] AFR AMER GFR >60 mL/min [facility] Ho spital NON-AA GFR >60 mL/min [facility] ital Male GFR Inter prentation 20-49 yrs [...] >32 mL/min Normal ID Date Data Source [id number] 01/05/2021 07:19:00 PM EDT [facility] Name Value Range Interpretation Code Description Data Janet rce(s) Supporting Document(s) BNP 20 PG/ML 0 - 125 [facility] ID Date Data Source [id number] 01/05/2021 07:16:00 PM EDT [facility] Name Value Range Interpretation Code Description Data Janet rce(s) Supporting Document(s) Prothrombin time (PT) 13.1 SECONDS 11.0 - 15.5 [facility] INR in Platelet poor plasma by Coagulation assay 0.94 0.93 - 1. 23 [facility] aPTT in Blood by Coagulation assay 26.5 SECONDS 24.8 - 36.7 [facility] \BLDo\INR INTERPRETATION\BLDx\ Therapeutic range for Coumadin and related oral anticoagulants. - International Normalized Ratio (INR): 2.0 - 3.0 for Venous Thrombosis, Pulmonary Embolus, Tissue heart valves, Acute PR Atrial Fibrillation, Valvular heart disease and recurrent Systemic Embolism. - International Normalized Ratio (INR): 2.5 - 3.5 for Mechanical Prosthetic valve. ID Date Data Source [id number] 01/05/2021 07:11:00 PM EDT [facility] Name Value Range Interpretation Code Description Data Janet rce(s) Supporting Document(s) CBC W/AUTOMATED DIFF [facility] COMPLETE BLOOD COUNT Leukocytes [#/volume] in Blood by Automated count 15.6 10^3/uL 4.2 - 11.0 H [facility] Erythrocytes [#/volume] in Blood by Automated count 4.16 10^6/uL 4. 20 - 5.40 L [facility] Hemoglobin [Mass/volume] in Blood 13.1 g/dL 12.0 - 16.0 [facility] Hematocrit [Volume Fraction] of Blood by Automated count 37.0 % 3 7.0 - 47.0 [facility] Erythrocyte mean corpuscular volume [Entitic volume] by Auto mated count 88.9 fL 81.0 - 101 [facility] Erythrocyte mean corpuscular hemoglobin [Entitic mass] by Automated count 31.5 pg 27.0 - 34.0 [facility] Erythrocyte mean corpuscular hemoglobin concentration [Mass/volume] by Automated count 35.4 g/dL 31.0 - 36.0 [facility] Erythrocyte distribution width [Ratio] by Automated count 12.7 % 11.5 - 14.5 [facility] Platelets [#/volume] in Blood by Automated count 228 10^3/uL 150 - 45 0 [facility] Platelet mean volume [Entitic volume] in Blood by Automated count 9.2 fL 7.4 - 10.4 [facility] Neutrophils/100 leukocytes in Blood by Automated count 80.1 % 37. 0 - 80.0 H [facility] Lymphocytes/100 leukocytes in Blood by Manual count 10.8 % 25.0 - 40.0 L [facility] Monocytes/100 leukocytes in Blood by Automated count 7.2 % 3.0 - 8.0 [facility] Eosinophils/100 leukocytes in Blood by Automated count 0.4 % 0.0 - 7.0 [facility] 0.3 %IG 1.2 % 0.0 - 0.[address] [facility] %NRBC 0.0 % 0.0 - 0.0 [facility] al Neutrophils [#/volume] in Blood by Automated count 12.49 10^3/uL 2. 00 - 6.90 H [facility] Lymphocytes [#/volume] in Blood by Automated count 1.69 10^3/uL 0.60 - 3.40 [facility] Monocytes [#/volume] in Blood by Automated count 1.13 10^3/uL 0.00 - 0.90 H [facility] Eosinophils [#/volume] in Blood by Automated count 0.06 10^3/uL 0.00 - 0.70 [facility] Basophils [#/volume] in Blood by Automated count 0.04 10^3/uL 0.00 - 0.20 [facility] #IG 0.18 10^3/uL 0.00 - 0.10 H [facility] H ospital #NRBC 0.00 10^3/uL 0.00 - 0.00 [facility] ospital MANUAL DIFF SEE BELOW [facility] ital Segmented neutrophils/100 leukocytes in Blood by Manual count 79 % 37 - 80 [facility] BAND 0 % 0 - 5 [facility] al %LYMPH 10 % 25 - 40 L [facility] al %MONO 11 % 3 - [address] [facility] %EOS 0 % 0 - 7 [facility] 0 Metamyelocytes/100 leukocytes in Blood by Manual count 0 % [facility] Myelocytes/100 leukocytes in Blood by Manual count 0 % [facility] Promyelocytes/100 leukocytes in Blood by Manual count 0 % [facility] Blasts/100 leukocytes in Blood by Manual count 0 % [facility] AKIRA LYM 0 % [facility] Nucleated erythrocytes/100 erythrocytes in Blood by Manual count 0 % [facility] RBC MORPH NOT INDICATED [facility] Ho spital ID Date Data Source [id number] 01/05/2021 06:58:00 PM EDT [facility] Name Value Range Interpretation Code Description Data Janet rce(s) Supporting Document(s) AMNISURE MEMBRANE TEST C [facility] _AMNISURE MEMBRANE TEST_ NISURE MEMBRANES RUPTURED [facility] NISURE REENTER MEMBRANES RUPTURED [facility] TRIP LOT # [id number] [facility] [place]P DATE 08-14-23 [facility] spital ROCEDURAL CONTROL [facility] NORMAL RANGE: NO RUPTURED MEMBRANES THE AMNISURE ROM TEST RESULTS ARE QUALITATIVE. NO QUANTITATIVEINTERPRETATION SHOULD BE MADE BASED ON THE TEST RESULTS.RESULTS SHOULD BE USED IN CONJUCTION WITH OTHER CLINICAL INFORMATION ID Date Data Source [id number] 01/05/2021 07:12:00 PM EDT [facility] Name Value Range Interpretation Code Description Data Janet rce(s) Supporting Document(s) URINALYSIS [facility] [place] URINALYSIS SOURCE Clean Catch [facility] ital COLOR yellow NORMAL: Yellow [facility] CLARITY clear NORMAL: Clear [facility] Ho spital Specific gravity of Urine by Test strip 1.010 1.001 - 1.030 [facility] pH 7 5 - [facility] Glucose [Mass/volume] in Urine by Test strip NORM [facility] Bilirubin.total [Presence] in Urine by Test strip NEG NORMAL: Negative [facility] Ketones [Presence] in Urine by Test strip NEG NORMAL: Negative [facility] Protein [Mass/volume] in Urine by Test strip NEG NORMAL: Negat [facility] Nitrite [Presence] in Urine by Test strip NEG NORMAL: Negative [facility] BLOOD 150 NORMAL: Negative [facility] Leukocyte esterase [Presence] in Urine by Test strip NEG ANSHU L: Negative [facility] Urobilinogen [Mass/volume] in Urine by Test strip NOR less vikas n 1.0 mg/dL [facility] MICROSCOPIC See Below [facility] ital Erythrocytes [#/volume] in Urine by Test strip 1 - 3 NORMAL: NON E SEEN [facility] EPITHELIAL MODERATE NORMAL: NONE SEEN [facility] Bacteria [Presence] in Urine sediment by Light microscopy Tr chris NORMAL: NONE SEEN [facility] Procedure Social History No Information Vital Signs ID Date Data Source [id number] 01/11/2021 10:41:28 AM EDT [facility] Name Value Range Interpretation Code Description Data Source(s) WEIGHT RECORDED 157.[address] [facility] Height 64 Inches 064 Inches [facility]
[2021-06-12 20:57] LABS: BASO % 0.7 % (0.0-1.0); EOS # 0.1 10^3/uL (0.0-0.5); EOS % 1.7 % (0.0-3.0); HEMATOCRIT 39.9 % (36.0-47.0); HEMOGLOBIN 13.8 g/dl (12.0-15.5); LYMPH # 1.5 10^3/uL (1.5-5.0); LYMPH % 25.1 % (24.0-44.0); MEAN CORPUSCULAR HEMOGLOBIN 31.4 pg (27.0-33.0); MEAN CORPUSCULAR HGB CONC 34.6 g/dl (32.0-36.5); MEAN CORPUSCULAR VOLUME 90.9 fl (80.0-96.0); MONO # 0.5 10^3/uL (0.0-0.8); NEUTROPHILS # 3.9 10^3/uL (1.5-8.5); NEUTROPHILS % 64.3 % (36.0-66.0); PLATELET COUNT, AUTOMATED 251 10^3/uL (150-450); RED BLOOD COUNT 4.39 10^6/uL (4.00-5.40)
[2021-06-12 21:24] LABS: ERYTHROCYTE SEDIMENTATION RATE 1 mm/hr (0-20)
[2021-06-12 21:25] LABS: HCG, SERUM QUALITATIVE NEGATIVE (NEGATIVE)
[2021-06-12 21:26] LABS: BLOOD UREA NITROGEN 10 MG/DL (7-18); CALCIUM LEVEL 8.8 MG/DL (8.5-10.1); CARBON DIOXIDE LEVEL 28 MEQ/L (21-32); CHLORIDE LEVEL 107 MEQ/L (98-107); CPK CREATINE PHOSPHOKINASE 58 U/L (26-192); CREATININE FOR GFR 0.64 MG/DL (0.55-1.30); GLOMERULAR FILTRATION RATE > 60.0 (>60); GLUCOSE, FASTING 83 MG/DL (70-100); MB/CK RELATIVE INDEX 1.72 (< OR =4); NT-PRO BNP 73 PG/ML (<125); POTASSIUM SERUM 3.7 MEQ/L (3.5-5.1); SODIUM LEVEL 139 MEQ/L (136-145); TROPONIN I < 0.02 NG/ML (< 0.10)
[2021-06-12] MEDS ORDERED: methylPREDNISolone 125MG 2ML VIAL IV ONE (23:30)
[2021-06-12] MEDS ORDERED: ISOVUE-370 76% 100ML VIAL As Ordered ONE (23:36)
--- NOTE | 2021-06-13 00:02 | REPVR ---
PROCEDURE INFORMATION: Exam: XR Chest Exam date and time: 06/12/2021 10:16 PM Age: 36 years old Clinical indication: Pain; Other: Unspecified; Additional info: Chest pain TECHNIQUE: Imaging protocol: XR of the chest. Views: 1 view. COMPARISON: CT ANGIO CHEST 06/12/2017 5:39 PM FINDINGS: Lungs: Unremarkable. No consolidation. Pleural spaces: Unremarkable. No pleural effusion. No pneumothorax. Heart/Mediastinum: Unremarkable. No cardiomegaly. Bones/joints: Unremarkable. IMPRESSION: No acute findings. Electronically signed by: Antwan Mendez On 06/13/2021 00:01:50 AM
--- NOTE | 2021-06-13 00:09 | REPVR ---
PROCEDURE INFORMATION: Exam: CTA Chest With Contrast Exam date and time: 06/12/2021 11:43 PM Age: 36 years old Clinical indication: Other: Chest pain, SOB TECHNIQUE: Imaging protocol: Computed tomographic angiography of the chest with contrast. 3D rendering (Not supervised by radiologist): MIP and/or 3D reconstructed images were created by the technologist. Radiation optimization: All CT scans at this facility use at least one of these dose optimization techniques: automated exposure control; mA and/or kV adjustment per patient size (includes targeted exams where dose is matched to clinical indication); or iterative reconstruction. Contrast material: ISOVUE 370; Contrast volume: 75 ml; Contrast route: INTRAVENOUS (IV); COMPARISON: CT ANGIO CHEST 06/12/2017 5:39 PM FINDINGS: Pulmonary arteries: Normal. No pulmonary emboli. Aorta: Unremarkable. No aortic aneurysm. No aortic dissection. Lungs: Calcified granuloma at the right lower lobe. 2 mm nodule in the right lower lobe. Pleural spaces: Unremarkable. No pneumothorax. No pleural effusion. Heart: Unremarkable. No cardiomegaly. No pericardial effusion. Lymph nodes: Unremarkable. No enlarged lymph nodes. Bones/joints: Unremarkable. No acute fracture. Soft tissues: Unremarkable. IMPRESSION: No pulmonary embolism. Nodule measuring 2 mm in the right lower lobe stable since 06/12/2017. For patients at low risk (minimal or absent history of smoking and of other known risk factors), no routine follow-up is indicated. For patients at high risk (history of smoking or of other known risk factors), consider optional CT Chest at 12 months. (Reference: Lonny) References: Lonny H, et al. Guidelines for Management of Incidental Pulmonary Nodules Detected on CT Images: From the Fleischner Society 2017. Radiology. 2017;284(1):228-243. Electronically signed by: Antwan Mendez On 06/13/2021 00:09:07 AM
[2021-06-13] MEDS ORDERED: ALBUTEROL 90 MCG/ACT 8GM HFA INHALER INH ONE (01:05)
[2021-06-13 01:15] VITALS: BP 116/78
--- NOTE | 2021-06-13 01:15 | ECGEPIP ---
[facility] - ED Test Date: 2021-06-12 Pat Name: BITA RUBIN Department: Room: - Gender: Female Burn Crew Member: PHYLLIS : 1985 Requested By: RYANN Montgomery Order Number: [id number] Reading MD: Levon Angeles Measurements Intervals Point Lay Rate: 65 P: 58 WY: 170 QRS: 41 QRSD: 88 T: 26 QT: 426 QTc: 443 Interpretive Statements Normal sinus rhythm Comparison tracing not on file Electronically Signed on 06-13-2021 1:15:09 EDT by Levon Angeles
== END 2021-06-13 01:24 | disposition home or self-care (01) ==
LOC: M ED 19:12
DX: R06.00 Dyspnea, unspecified (principal); R07.89 Other chest pain; I25.10 Atherosclerotic heart disease of native coronary artery without angina pectoris; Z79.82 Long term (current) use of aspirin
CPT/HCPCS: 71045; 71275; 80048; 82550; 82553; 83880; 84484; 84703; 85025; 85652; 86140; 87798; 93005; 93041; 94760; 96374; 99285; J2930; Q9967

== ENCOUNTER → 2021-07-18 | Outpatient (REF) | payer OTHER ==
[~2021-07-18] MED LIST changes: +ASPI81CH33 PO
[2021-07-18 13:40] LABS: ALBUMIN 4.2 GM/DL (3.2-5.2); ALT/SGPT 48 U/L (12-78); BILIRUBIN,TOTAL 1.8 MG/DL (0.2-1.0); BLOOD UREA NITROGEN 14 MG/DL (7-18); CALCIUM LEVEL 9.6 MG/DL (8.5-10.1); CARBON DIOXIDE LEVEL 29 MEQ/L (21-32); CHLORIDE LEVEL 106 MEQ/L (98-107); CREATININE FOR GFR 0.67 MG/DL (0.55-1.30); GLOMERULAR FILTRATION RATE > 60.0 (>60); GLUCOSE, FASTING 83 MG/DL (70-100); POTASSIUM SERUM 4.7 MEQ/L (3.5-5.1); SODIUM LEVEL 140 MEQ/L (136-145); TOTAL PROTEIN 7.3 GM/DL (6.4-8.2)
== END ==
LOC: M SFHCADAM 11:05
PROVIDERS: ATTEND Physician Assistant Medical
DX: F41.9 Anxiety disorder, unspecified (principal)

== ENCOUNTER → 2022-08-02 | Outpatient (CLI) | payer OTHER ==
[~2022-08-02] MED LIST changes: +METHACHOLINE KIT INH ONE
== END ==
LOC: M CARPUL 14:42
PROVIDERS: ATTEND Physician Assistant
DX: R06.00 Dyspnea, unspecified (principal)
CPT/HCPCS: 94070; J7674

== ENCOUNTER → 2024-03-23 | Outpatient (CLI) | payer OTHER ==
[~2024-03-23] MED LIST changes: -METHACHOLINE KIT INH ONE
[2024-03-23 13:16] LABS: HEMATOCRIT 41.5 % (36.0-47.0); HEMOGLOBIN 14.3 g/dl (12.0-15.5); MEAN CORPUSCULAR HEMOGLOBIN 31.8 pg (27.0-33.0); MEAN CORPUSCULAR HGB CONC 34.5 g/dl (32.0-36.5); MEAN CORPUSCULAR VOLUME 92.4 fl (80.0-96.0); PLATELET COUNT, AUTOMATED 255 10^3/uL (150-450); RED BLOOD COUNT 4.49 10^6/uL (4.00-5.40)
[2024-03-23 13:21] LABS: APPEARANCE, URINE CLEAR (CLEAR); BACTERIA, URINE AUTO 1+ (NEGATIVE); BILIRUBIN, URINE AUTO NEGATIVE (NEGATIVE); BLOOD, URINE BLOOD NEGATIVE (NEGATIVE); COLOR, URINE YELLOW (YELLOW); GLUCOSE, URINE (UA) AUTO NEGATIVE (NEGATIVE); KETONE, URINE AUTO NEGATIVE (NEGATIVE); LEUKOCYTE ESTERASE, URINE AUTO NEGATIVE (NEGATIVE); NITRITE, URINE AUTO NEGATIVE (NEGATIVE); PROTEIN, URINE AUTO NEGATIVE (NEGATIVE); RBC, URINE AUTO 0 /HPF (0-3); SPECIFIC GRAVITY URINE AUTO 1.006 (1.002-1.035); SQUAMOUS EPITHELIAL CELL UR AU 1 /HPF (0-6); UROBILINOGEN, URINE AUTO 0.2 mg/dL (0.0-2.0); WBC, URINE AUTO 0 /HPF (0-3)
[2024-03-23 13:40] LABS: ERYTHROCYTE SEDIMENTATION RATE 2 mm/hr (0-20)
[2024-03-23 13:43] LABS: ALBUMIN 4.6 G/DL (3.2-5.2); ALKALINE PHOSPHATASE 49 U/L (46-116); ALT/SGPT 24 U/L (7.0-40); AST/SGOT 19 U/L (<34); BILIRUBIN,TOTAL 1.2 MG/DL (0.3-1.2); BLOOD UREA NITROGEN 11 MG/DL (9-23); CALCIUM LEVEL 9.7 MG/DL (8.5-10.1); CARBON DIOXIDE LEVEL 30 MMOL/L (20-31); CHLORIDE LEVEL 103 MMOL/L (98-107); CREATININE FOR GFR 0.56 MG/DL (0.55-1.30); GLOMERULAR FILTRATION RATE > 60.0 (>60); GLUCOSE, FASTING 93 MG/DL (60-100); POTASSIUM SERUM 4.2 MMOL/L (3.5-5.1); SODIUM LEVEL 138 MMOL/L (136-145); TOTAL PROTEIN 7.4 G/DL (5.7-8.2)
[2024-03-23 13:45] LABS: THYROID STIMULATING HORMONE 1.247 uIU/ML (0.55-4.78)
== END ==
LOC: M PLALAB 11:23
PROVIDERS: ATTEND Physician Assistant Medical
DX: R00.2 Palpitations (principal)

== ENCOUNTER → 2024-03-30 | Outpatient (REF) | payer OTHER ==
[2024-03-30 14:47] LABS: C REACTIVE PROTEIN QUANTITATIV < 0.40 MG/DL (<1.0)
[2024-03-30 14:50] LABS: COMPLEMENT C3 107.6 MG/DL (84.0-160.0); COMPLEMENT C4 20.3 MG/DL (12-36)
[2024-03-30 14:51] LABS: TOTAL 25(OH) VITAMIN D 34.9 NG/ML (20.0-100.0)
[2024-03-31 16:51] LABS: ANA SCREEN, IFA NEGATIVE (NEGATIVE)
[2024-03-31 23:58] LABS: CYCLIC CITRULLINATED PEPTIDE < 16 UNITS (<20)
[2024-04-02 10:43] LABS: DRVV SCREEN 30.9 SECONDS
[2024-04-02 10:51] LABS: PTT LUPUS TYPE ANTICOAG SCREEN 0.77 (0-1.20)
[2024-04-03 02:57] LABS: LYME TOTAL ANTIBODY CIA <= 0.90 Index (<=0.90)
== END ==
LOC: M SFHCADAM 08:34
PROVIDERS: ATTEND Physician Assistant Medical
DX: F41.1 Generalized anxiety disorder (principal); R00.2 Palpitations; R21 Rash and other nonspecific skin eruption; H53.9 Unspecified visual disturbance; R42 Dizziness and giddiness

== ENCOUNTER → 2024-04-13 | Outpatient (CLI) | payer OTHER | LOC: M RAD 07:05 | PROVIDERS: ATTEND Physician Assistant Medical | DX: Z53.9 Procedure and treatment not carried out, unspecified reason (principal) ==

== ENCOUNTER 2024-12-08 09:42 | Emergency (ER) | payer OTHER, BC ==
[~2024-12-08] VITALS: Ht 162.6 cm; Wt 60.3 kg
[2024-12-08] MEDS ORDERED: ESCITALOPRAM (09:48)
[2024-12-08] MEDS: BOOSTRIX VACCINE (TETANUS/DIPHTH/ACEL. PERTUSSIS) 0.5ML SYR IM ONE (11:12)
[2024-12-08 12:04] VITALS: BP 134/84; TEMP 97.8; O2SAT 100
[2024-12-08] MEDS: LIDOCAINE 1% MDV 20ML VIAL SC ONE (12:05)
[2024-12-08] MEDS: NEOSPORIN OINT 0.9 GM PKT TOP ONE (12:53)
== END 2024-12-08 12:58 | disposition home or self-care (01) ==
LOC: M ED 10:57
DX: S61.217A Laceration without foreign body of left little finger without damage to nail, initial encounter (principal); W26.0XXA Contact with knife, initial encounter; Y92.009 Unspecified place in unspecified non-institutional (private) residence as the place of occurrence of the external cause; Y93.9 Activity, unspecified; Y99.9 Unspecified external cause status; F41.9 Anxiety disorder, unspecified; F32.A Depression, unspecified; Z79.82 Long term (current) use of aspirin